=== PATIENT | female | born 1990 | race Caucasian/White ===

== ENCOUNTER 2017-04-14 11:34 | Inpatient (IN) | payer BC ==
[~2017-04-14] VITALS: Ht 167.6 cm; Wt 86.0 kg
[~2017-04-14 11:34] MED LIST: IBUP600T44 PO; PRENTAB26 PO
[2017-04-14 12:45] VITALS: BP 130/76; PULSE 77; TEMP 37.5; O2SAT 98
[2017-04-14] MEDS ORDERED: LACTATED RINGER'S 1000ML 1,000 ML IV SCH (14:18)
[2017-04-14] MEDS ORDERED: MEASLES, MUMPS & RUBELLA VIRUS VIAL SQ. ONE (14:30)
[2017-04-14] MEDS ORDERED: DIPHTHERIA/TETANUS/PERTUSSIS 0.5 ML SYR/VIAL IM. ONE (14:30)
[2017-04-14] MEDS ORDERED: LANOLIN OINT EXT PRN ×2 (14:30)
[2017-04-14] MEDS ORDERED: SUPERCREAM 0.870 % 15GM JAR EXT PRN (14:30)
[2017-04-14] MEDS ORDERED: OXYTOCIN 30 UNITS/500ML NSS IV PRN (14:30)
[2017-04-14] MEDS ORDERED: HYDROCORTISONE ACETATE 25 MG SUPP PR PRN (14:30)
[2017-04-14] MEDS ORDERED: BENZOCAINE 20% AER SPR 82.5 GM CAN EXT PRN (14:30)
--- NOTE | 2017-04-14 14:30 | Progress Note ---
Progress Note Date of Service Apr 14, 2017. Progress Note Admit Note 27 F P1001 who presented to [facility] ER in active labor at 35.4 weeks. Patient was found to be 8 cm and was to late to transfer to [facility] [place]. she had a normal spontaneous precipitous delivery by ER attending Dr. Parker with vigorous . Placenta was delivered intact and there were no tears. No active bleeding following Pitocin. Apgars unknown. When patient and baby male were stable she was transferred to [facility] for follow up care. Upon admission to [facility] she was examined and had a firm fundus and minimal lochia noted. She was alert and had been out of bed and voided OK. She tolerated diet. Baby in nursery and doing fine. Anticipate normal post- course and plan for discharge in AM if stable.
[2017-04-14 14:52] VITALS: Ht 167.6 cm; Wt 86.0 kg
[2017-04-14 15:30] VITALS: BP 119/76; PULSE 78; TEMP 36.9
[2017-04-14 19:45] VITALS: BP 120/70; PULSE 80; TEMP 37.5
[2017-04-14] MEDS: DOCUSATE SODIUM 100 MG CAP PO SCH (20:11)
[2017-04-14 23:30] VITALS: BP 119/72; PULSE 81; TEMP 37.1; O2SAT 98
[2017-04-15 04:40] VITALS: BP 103/64; PULSE 70; TEMP 36.8; O2SAT 98
[2017-04-15] MEDS ORDERED: MTR600X PO (07:13)
--- NOTE | 2017-04-15 07:14 | Discharge Instructions ---
Discharge Instructions Date of Service Apr 15, 2017. Admission Reason for Admission: Status Post Vag Delivery From Hosp Discharge Discharge Diagnosis / Problem: Precipitous vaginal Delivery Discharge Goals Goal(s): Routine recovery after delivery Medications Continue Dispensed Medications: supercream, dermaplast, tucks, lansinoh Activity Recommendations Activity Limitations: per Instructions/Follow-up section . Instructions / Follow-Up Instructions / Follow-Up ACTIVITY RECOMMENDATIONS: * Gradual return to full activity over the next 2-3 weeks. * No lifting - nothing heavier than baby over the next 2-3 weeks. * Do not engage in vigorous exercise, sexual activity or sports until cleared by your physician. * Do not drive or operate any motorized equipment until cleared by your physician. * You may shower/bathe daily. BREAST CARE: If you are not breast feeding: * Wear a supportive bra 24 hours a day for one to two weeks. * Avoid stimulating your breasts and nipples as much as possible during the first few weeks after delivery. * When taking a shower, have the warm water hit your back, not breasts. * When your breasts feel full, apply ice packs. Usually three to four times a day helps ease the discomfort. * Take a mild pain medication (Tylenol/Motrin) when you are uncomfortable. If breast feeding: * Use breast milk to lubricate nipples. Lansinoh cream may be used for sore nipples. You do not need to remove cream prior to breast feeding. If using a different brand of cream, check the label for directions regarding removal of cream prior to nursing. * Wear a supportive bra. * If having problems with breasts or breast feeding, call a exchange underwriting consultant or your health care provider. EPISIOTOMY CARE: After delivery, if you have an episiotomy (stitches), the following steps will ease discomfort and aid healing. * For the first 24 hours after delivery, place ice packs next to your episiotomy to help reduce swelling. * After the first 24 hour-period, sitz baths, either portable or in the tub, are suggested. A shower with a shower arm sprayed over the episiotomy may be comforting. * Khadijah care should be done after each voiding and bowel movement. Squirt warm water from a plastic bottle over the perineum (region of the body between the anus and urinary opening) and pat dry. * Use Dermoplast to ease discomfort. Shake container. [place] directly over the episiotomy. * Place a Tucks on a clean sanitary pad next to your episiotomy. OVER THE COUNTER MEDICATION: * For discomfort or pain, you may use Acetaminophen (Tylenol), Ibuprofen (Advil ), or Naproxen (Aleve) following the package directions. * For constipation you may use Colace following the package directions. SPECIAL CARE INSTRUCTIONS: When you are discharged from the hospital, it is important for you to follow the instructions listed below: * During the first week at home, you should be able to care for yourself and your baby. In addition, the usual light household activities are encouraged. * Limit your activities to the way you feel. Do not try to clean the house or move furniture. Be sensible. * If you actively engage in sports and have done so up until the time of your delivery, you may resume these activities as soon as you feel able. This may take up to one month or even longer. Use good judgment. * Continue to take your vitamins for at least six weeks after the of your baby. * Your diet need not be limited unless you were on a special diet before your delivery. Breast-feeding mothers need around 2500 calories per day and at least 64-80 ounces of fluid per day (8 to 10 glasses). * You should eat foods from the four major food groups. Crash diets or fad diets are to be avoided. Eating lean meats, fresh fruits and vegetables, low-fat dairy products, high fiber foods and a regular exercise program, will help you get back to your pre- weight without putting your health at risk. * Constipation is sometimes a problem after delivery. Take a mild laxative as needed. If breast feeding, Milk of Magnesia is acceptable to use. You may use a suppository or Fleets enema if no episiotomy. * A daily shower or tub bath is suggested. Be sure to thoroughly and gently dry the perineum. * A bloody vaginal discharge will usually continue until around four weeks post . A small amount of bleeding may continue for as long as six weeks. Vaginal discharge changes from the bright red bleeding after delivery to pink then brownish and finally yellowish-pink before becoming white and disappearing. * Bleeding may increase with activity. Your first period may come in 4-8 weeks. If you are breast feeding, your period may be delayed even longer. * [place] (sex) can begin whenever both you and your partner feel comfortable and do not have any form of genital infection. It is recommended that you wait until after your return appointment and discuss with your physician. If you have questions, please talk to your health care practitioner. A condom should be used to prevent infection and . * Foreplay, gentle intercourse and lubrication is very important the first several times to prevent pain. A water-based lubricant such as K-Y jelly or Astroglide may be used. * Tampons may be used six weeks after delivery. * Douching should be avoided for 6 weeks after delivery. * If you have RH negative blood and your baby is RH positive, you will receive RHOGAM by injection prior to discharge. The nurse will give you a card to keep with you that has the date and place that you received RHOGAM after delivery. * During your care, you had a Rubella screen done to check for the presence of rubella antibodies in your blood. If your test was negative, you will receive a Rubella vaccine prior to discharge. This vaccine may cause a fever, soreness at the injection site and flu-like symptoms. If these symptoms persist, notify your health care practitioner. is not advised for three months after a Rubella vaccine. There is a higher chance of having a baby with defects if conceived within three months of getting the vaccine. * If you were discharged 24 hours from delivery or before 48 hours: Visiting nurses will come to your home 48 hours after discharge to assess you and your baby. The visiting nurse will meet with you while you are in the hospital to arrange a time and get directions to your home. * Verbalizes understanding of car seat law as reviewed with patient nursing. * Car Seat hand-out given and reviewed with patient by nursing. * Shaken baby information reviewed with patient by nursing. Call you doctor if: * Heavy bleeding (saturating several pads an hour) or passing clots the size of your fist. * A fever >101 degrees F (38.3 degrees C) on two occasions four hours apart and/or chills. * Unusual pain in the pelvic or vaginal areas. * "Baby Blues" lasting longer than two weeks. If you have any questions or concerns, call your health care practitioner at . FOLLOW-UP VISIT: * Please call the office at to schedule a 6 week examination. It is important you keep this appointment. * It is important for you to make arrangements for either yearly or twice yearly check-ups thereafter. Current Hospital Diet Patient's current hospital diet: Regular OB Diet Discharge Diet Recommended Diet: Regular OB Diet Pending Studies Studies pending at discharge: no Medical Emergencies . Who to Call and When: Medical Emergencies: If at any time you feel your situation is an emergency, please call 911 immediately. . Non-Emergent Contact Non-Emergency issues call your: Primary Care Provider, Scientific Advisor . . "Provider Documentation" section prepared by Elbert Stout. . VTE Core Measure Inpt VTE Proph given/why not?: Treatment not indicated
--- NOTE | 2017-04-15 07:17 | OB/GYN Progress Note ---
[facility] Progress Note Date of Service Apr 15, 2017. Subjective conversation w/ patient, physical exam Ambulation: ambulating normally Voiding: no voiding problems Passing Gas: Yes Diet Tolerance: Regular Diet Lochia: Small Feeding Type: Breast Feeding Pain: 08/27 Notes: Doing well, no concerns. Pain well controlled. Lochia decreasing. Tolerating regular diet. Ambulating without difficulty. Would like to go home today. Objective Vital Signs Date Time Temp Pulse Resp B/P (MAP) Pulse Ox O2 Delivery O2 Flow Rate FiO2 04/15/17 04:40 36.8 70 18 103/64 (77) 98 Room Air 04/14/17 23:30 37.1 81 18 119/72 (88) 98 Room Air 04/14/17 23:30 98 Room Air 04/14/17 19:45 Room Air 04/14/17 19:45 37.5 80 18 120/70 (87) Room Air 04/14/17 15:30 Room Air 04/14/17 15:30 36.9 78 18 119/76 (90) Room Air 04/14/17 12:45 37.5 77 18 130/76 (94) Room Air 04/14/17 12:45 98 Room Air Physical Exam General Appearance: WELL-APPEARING Respiratory/Chest: chest non-tender, lungs clear Cardiovascular: regular rate, rhythm Abdomen: normal bowel sounds, soft Fundus: Firm Extremities: normal range of motion, non-tender, no calf tenderness Laboratory Results Last 24 Hours Test 04/15/17 06:17 Hemoglobin 10.4 g/dL Hematocrit 31.0 % Assessment and Plan Post- Day Number: 1 Continue Routine Care: -D/C home today -F/U in 6 weeks.
[2017-04-15 07:25] VITALS: BP 102/64; PULSE 63; TEMP 36.8
[2017-04-15] MEDS: FERROUS SULFATE 325 MG TAB PO SCH (07:49)
[2017-04-15] MEDS: PRENATAL VITAMIN TAB PO SCH (07:49)
[2017-04-15] MEDS: DOCUSATE SODIUM 100 MG CAP PO SCH ×2 (07:49→19:25)
[2017-04-15 16:10] VITALS: BP 112/68; PULSE 65; TEMP 37.2
[2017-04-15 19:15] VITALS: TEMP 37.4
[2017-04-15] MEDS: ACETAMINOPHEN 325 MG TAB PO PRN (19:26)
[2017-04-15] MEDS ORDERED: BISACODYL 5 MG TABEC PO SCH (20:00)
[2017-04-15 23:45] VITALS: BP 136/80; PULSE 96; TEMP 39.2
[2017-04-15] MEDS: IBUPROFEN 600 MG TAB PO PRN (23:59)
[2017-04-16] VITALS (10 sets, daily range): BP systolic 107–131; BP diastolic 69–79; PULSE 83–107; TEMP 36.7–39.5; O2SAT 96–98
[2017-04-16] MEDS: IBUPROFEN 600 MG TAB PO PRN ×3 (06:26→16:24)
[2017-04-16] MEDS ORDERED: BISACODYL 10 MG SUPP PR PRN (07:00)
[2017-04-16] MEDS: DOCUSATE SODIUM 100 MG CAP PO SCH ×2 (08:23→19:39)
[2017-04-16] MEDS: FERROUS SULFATE 325 MG TAB PO SCH (08:23)
[2017-04-16] MEDS: PRENATAL VITAMIN TAB PO SCH (08:23)
[2017-04-16] MEDS ORDERED: CEFAZOLIN IV 2,000 MG in DEXTROSE 5% 50ML 50 ML IV SCH (12:30)
--- NOTE | 2017-04-16 12:44 | Progress Note ---
Progress Note Date of Service Apr 16, 2017. Progress Note S; s/p delivery at [facility] in on 04/14/17 Pt has had 2 episodes of fever in 48hrs. has chills, no nausea,vomiting. no SOB O; fever x 2 in 48hrs Ht; S1S2 R/R/R lung; CTA bilat Abd; NT ND + BS Pel. moderate lochia Ext; No C/C/E A/p Post day #2 s/p delivery at ER [place] Plan labs CXR UA, C&S and blood clx start ancef antibx
[2017-04-16 13:19] LABS: BASO % 0.1 %; BASO ABS # 0.01 K/uL (0-0.2); HEMATOCRIT 33.5 % (37-47); IG% 1.6 %; LYMPH % 5.9 %; LYMPH ABS # 0.43 K/uL (1.2-3.4); MEAN CELL VOLUME 85.2 fL (80-100); MEAN CORPUSCULAR HEMOGLOBIN 29.5 pg (25-34); MONO % 3.6 %; NEUT % 88.8 %; PLATELET COUNT 149 K/uL (130-400); RED BLOOD COUNT 3.93 M/uL (4.2-5.4); WHITE BLOOD COUNT 7.32 K/uL (4.8-10.8)
[2017-04-16 13:31] LABS: COMPLETE YES; MEAN CORPUSCULAR HGB CONC 34.6 g/dl (32-36)
[2017-04-16 13:40] LABS: BUN/CREATININE RATIO 7.8 (10-20); CALCIUM 8.7 mg/dl (8.5-10.1); CREATININE 0.67 mg/dl (0.60-1.20); POTASSIUM 3.5 mmol/L (3.5-5.1)
[2017-04-16 13:47] LABS: ALB/GLOB RATIO 0.6 (0.9-2)
[2017-04-16] MEDS: LACTATED RINGER'S 1000ML 1,000 ML IV SCH (14:13)
--- NOTE | 2017-04-16 15:03 | DIAGNOSTIC IMAGING REPORT ---
PELVIC ULTRASOUND CLINICAL HISTORY: Status post vaginal delivery 2 days ago. Evaluate for retained products of conception. COMPARISON STUDY: None. TECHNIQUE: Transabdominal and transvaginal sonography of the pelvis was performed. FINDINGS: The uterus is enlarged, as expected, measuring 18.7 x 6.7 x 14.5 cm. The endometrium measures 6 mm in thickness. There is hypoechoic material within the lower endometrial canal. There are no areas of increased vascularity within the endometrium. No endometrial mass is identified. The ovaries are sonographically normal. The right measures 2.5 x 1.2 x 1.4 cm and left measures 2.7 x 1.6 x 2.7 cm. IMPRESSION: 1. Small amount of hypoechoic material within the lower endometrial canal without hypervascularity. This may reflect minimal blood products. No convincing sonographic evidence for retained products of conception. Expected uterine enlargement. Normal endometrial thickness of 6 mm. 2. Unremarkable sonographic appearance of the ovaries. Electronically signed by: Alo Lovett M.D. 04/16/2017 3:01 PM Dictated Date/Time: 04/16/2017 2:56 PM
--- NOTE | 2017-04-16 15:11 | DIAGNOSTIC IMAGING REPORT ---
CHEST-PA,LAT AND OBLIQUE VIEWS (4 views) CLINICAL HISTORY: fever COMPARISON STUDY: No previous studies for comparison. FINDINGS: The cardiac and mediastinal contours are normal. Slight increased attenuation the lower lung zones is felt to be secondary to overlying breast tissue attenuation. There is no focal pulmonary consolidation. There is a trace right pleural effusion. IMPRESSION: Trace right pleural effusion. No evidence of focal pulmonary consolidation Electronically signed by: Nakul Austin M.D. 04/16/2017 3:09 PM Dictated Date/Time: 04/16/2017 3:08 PM
[2017-04-16] MEDS: ACETAMINOPHEN 325 MG TAB PO PRN (17:35)
[2017-04-16 17:44] LABS: URINE APPEARANCE CLOUDY (CLEAR); URINE BILIRUBIN NEG (NEG); URINE COLOR YELLOW; URINE EPITHELIAL CELL AUTO >30 /lpf (0-5); URINE NITRITE NEG (NEG); URINE SPECIFIC GRAVITY 1.017 (1.000-1.030); UROBILINOGEN NEG (NEG); ZZUR CULT IF INDIC CLEAN CATCH YES
[2017-04-16 17:46] LABS: MANUAL MICROSCOPIC REQUIRED? NO; REVIEW REQ? NO
--- NOTE | 2017-04-16 18:06 | Progress Note ---
Progress Note Date of Service Apr 16, 2017. Progress Note Pt has another recorded temp of 39.0 On Ancef No headache, SOB or malaise. feels occasional chills Labs reviewed; No elev WBC, chest xray and pelvic sono nml Plan will change ancef to AMP and add Gent
[2017-04-16] MEDS ORDERED: GENTAMICIN CONSULT ACTIVE PRN (19:00)
[2017-04-16] MEDS: AMPICILLIN IV 2,000 MG in SODIUM CHLOR 0.9% AD-VAN 100ML 100 ML IV SCH (19:28)
--- NOTE | 2017-04-16 19:37 | Pharmacy Progress Note ---
Pharmacy Abx Initial Consult Date of Service Apr 16, 2017. Pharmacy Dosing Scope Date of Consult: 04/16/17 Consultation requested by: Dr. Andres Pharmacy is automatically consulted to initiate gentamicin IV dosing therapy, order appropriate labs and adjust drug dose/frequency. Subjective The patient is a 27 year old female admitted on Apr 14, 2017 at 12:52. Objective Height (Feet): 5 Height (Inches): 6.00 Weight (Kilograms): 86.000 Vital Signs (Past 12Hrs) Vital Signs Past 12 Hours Date Time Temp Pulse Resp B/P (MAP) Pulse Ox O2 Delivery O2 Flow Rate FiO2 04/16/17 17:10 39.4 04/16/17 16:15 39.5 98 28 117/69 (85) 96 Room Air 04/16/17 16:15 96 Room Air 04/16/17 11:55 37.7 04/16/17 08:30 36.7 107 18 107/69 (82) 98 Room Air 04/16/17 08:30 98 Room Air Lab Results (24Hrs) Laboratory Tests (24 Hours) Test 04/16/17 12:51 White Blood Count 7.32 K/uL (4.8-10.8) Red Blood Count 3.93 M/uL (4.2-5.4) L Hemoglobin 11.6 g/dL (12.0-16.0) L Hematocrit 33.5 % (37-47) L Mean Corpuscular Volume 85.2 fL (80-100) Mean Corpuscular Hemoglobin 29.5 pg (25-34) Mean Corpuscular Hemoglobin Concent 34.6 g/dl (32-36) Platelet Count 149 K/uL (130-400) Mean Platelet Volume 11.0 fL (7.4-10.4) H Neutrophils (%) (Auto) 88.8 % Lymphocytes (%) (Auto) 5.9 % Monocytes (%) (Auto) 3.6 % Eosinophils (%) (Auto) 0.0 % Basophils (%) (Auto) 0.1 % Neutrophils # (Auto) 6.50 K/uL (1.4-6.5) Lymphocytes # (Auto) 0.43 K/uL (1.2-3.4) L Monocytes # (Auto) 0.26 K/uL (0.11-0.59) Eosinophils # (Auto) 0.00 K/uL (0-0.5) Basophils # (Auto) 0.01 K/uL (0-0.2) Micro Results Date/Time Source Procedure Growth Status 04/16/17 13:06 Blood Blood Culture Pending Received 04/16/17 12:51 Blood Blood Culture Pending Received 04/16/17 00:00 Urine , Clean Catch Urine Culture Pending Received Assessment & Plan Assessment 27 year old female day #2, currently on Ancef. Now to be initiated on ampicillin and gentamicin for continued fevers. Blood and urine cultures have been obtained. Plan Gentamicin for treatment of possible endometritis. * Standard is to do conventional q8h dosing in these patients but more recent literature indicates that once daily dosing (at a dose of 5 mg/kg actual body weight) is just as clinically effective, less costly and has no more toxicity associated with it * Will initiate dose of 440 mg (~5 mg/kg actual body weight) IV q24h - currently ordered for 24 hours as per original order so will need to extend if necessary * No trough level is currently ordered so will need to order a trough prior to the 2nd dose if therapy is to be continued > 24 hours Pharmacy will continue to follow and will adjust dose/frequency as necessary. Thank you.
[2017-04-16] MEDS: GENTAMICIN INJ 440 MG in DEXTROSE 5% 100ML 100 ML IV SCH (20:27)
[2017-04-17] VITALS (8 sets, daily range): BP systolic 107–140; BP diastolic 73–86; PULSE 54–78; TEMP 36.6–39.5; O2SAT 97–100
[2017-04-17] MEDS: AMPICILLIN IV 2,000 MG in SODIUM CHLOR 0.9% AD-VAN 100ML 100 ML IV SCH ×4 (00:59→18:34)
[2017-04-17] MEDS: LACTATED RINGER'S 1000ML 1,000 ML IV SCH ×3 (02:09→18:34)
[2017-04-17] MEDS: IBUPROFEN 600 MG TAB PO PRN ×3 (04:44→13:04)
[2017-04-17 07:25] LABS: HEMATOCRIT 31.3 % (37-47); MEAN CELL VOLUME 85.3 fL (80-100); MEAN CORPUSCULAR HEMOGLOBIN 29.2 pg (25-34); MEAN PLATELET VOLUME 10.4 fL (7.4-10.4); PLATELET COUNT 139 K/uL (130-400); RED BLOOD COUNT 3.67 M/uL (4.2-5.4); WHITE BLOOD COUNT 9.28 K/uL (4.8-10.8)
[2017-04-17 07:39] LABS: MEAN CORPUSCULAR HGB CONC 34.2 g/dl (32-36)
[2017-04-17 07:49] LABS: BUN/CREATININE RATIO 9.8 (10-20); COMPLETE YES; CREATININE 0.63 mg/dl (0.60-1.20); EOSINOPHIL % 0.9 %; GIANT PLATELETS 1+; LYMPH ABS # 0.65 K/uL (1.2-3.4); MYELOCYTE % 1.8 %; POTASSIUM 3.4 mmol/L (3.5-5.1)
[2017-04-17 07:52] LABS: ALB/GLOB RATIO 0.6 (0.9-2)
--- NOTE | 2017-04-17 08:58 | OB/GYN Progress Note ---
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 Subjective conversation w/ patient, physical exam Ambulation: ambulating normally Voiding: no voiding problems Passing Gas: Yes Diet Tolerance: Regular Diet Lochia: Small Feeding Type: Breast Feeding Review of Systems Constitutional: + fever Objective Vital Signs Date Time Temp Pulse Resp B/P (MAP) Pulse Ox O2 Delivery O2 Flow Rate FiO2 04/17/17 05:50 38.7 04/17/17 04:30 39.5 78 20 123/77 (92) 98 Room Air 04/17/17 00:00 36.9 70 20 116/79 (91) 98 Room Air 04/17/17 00:00 98 Room Air 04/16/17 21:50 36.9 04/16/17 17:10 39.4 04/16/17 16:15 39.5 98 28 117/69 (85) 96 Room Air 04/16/17 16:15 96 Room Air 04/16/17 11:55 37.7 Physical Exam General Appearance: WELL-APPEARING, NO APPARENT DISTRESS Abdomen: non tender, soft Fundus: Firm Extremities: non-tender, normal inspection, no pedal edema Laboratory Results Last 24 Hours Test 04/16/17 12:51 04/17/17 07:11 White Blood Count 7.32 K/uL 9.28 K/uL Red Blood Count 3.93 M/uL 3.67 M/uL Hemoglobin 11.6 g/dL 10.7 g/dL Hematocrit 33.5 % 31.3 % Mean Corpuscular Volume 85.2 fL 85.3 fL Mean Corpuscular Hemoglobin 29.5 pg 29.2 pg Mean Corpuscular Hemoglobin Concent 34.6 g/dl 34.2 g/dl Platelet Count 149 K/uL 139 K/uL Mean Platelet Volume 11.0 fL 10.4 fL Neutrophils (%) (Auto) 88.8 % Lymphocytes (%) (Auto) 5.9 % Monocytes (%) (Auto) 3.6 % Eosinophils (%) (Auto) 0.0 % Basophils (%) (Auto) 0.1 % Neutrophils # (Auto) 6.50 K/uL Lymphocytes # (Auto) 0.43 K/uL Monocytes # (Auto) 0.26 K/uL Eosinophils # (Auto) 0.00 K/uL Basophils # (Auto) 0.01 K/uL RDW Standard Deviation 40.3 fL 40.2 fL RDW Coefficient of Variation 13.0 % 12.9 % Immature Granulocyte % (Auto) 1.6 % Immature Granulocyte # (Auto) 0.12 K/uL Sodium Level 137 mmol/L 139 mmol/L Potassium Level 3.5 mmol/L 3.4 mmol/L Chloride Level 105 mmol/L 109 mmol/L Carbon Dioxide Level 24 mmol/L 24 mmol/L Anion Gap 8.0 mmol/L 6.0 mmol/L Blood Urea Nitrogen 5 mg/dl 6 mg/dl Creatinine 0.67 mg/dl 0.63 mg/dl Est Creatinine Clear Calc Drug Dose 139.3 ml/min 148.1 ml/min Estimated GFR () 139.6 142.5 Estimated GFR (Non- 120.5 122.9 BUN/Creatinine Ratio 7.8 9.8 Random Glucose 96 mg/dl 88 mg/dl Calcium Level 8.7 mg/dl 8.0 mg/dl Total Bilirubin 0.7 mg/dl 0.6 mg/dl Aspartate Amino Transf (AST/SGOT) 19 U/L 41 U/L Alanine Aminotransferase (ALT/SGPT) 19 U/L 34 U/L Alkaline Phosphatase 143 U/L 119 U/L Total Protein 6.4 gm/dl 5.5 gm/dl Albumin 2.4 gm/dl 2.0 gm/dl Globulin 4.0 gm/dl 3.5 gm/dl Albumin/Globulin Ratio 0.6 0.6 Neutrophils % (Manual) 85.0 % Lymphocytes % (Manual) 7.0 % Monocytes % (Manual) 5.3 % Eosinophils % (Manual) 0.9 % Myelocytes % 1.8 % Neutrophils # (Manual) 7.89 K/uL Total Absolute Neutrophils 7.89 K/uL Lymphocytes # (Manual) 0.65 K/uL Total Absolute Lymphocytes 0.65 K/uL Monocytes # (Manual) 0.49 K/uL Eosinophils # (Manual) 0.08 K/uL Myelocytes # 0.17 K/uL Giant Platelets 1+ Assessment and Plan Post- Day Number: 3 Continue Routine Care: continue IV antibiotics blood and urine cultures pending
[2017-04-17] MEDS: FERROUS SULFATE 325 MG TAB PO SCH (09:03)
[2017-04-17] MEDS: PRENATAL VITAMIN TAB PO SCH (09:03)
[2017-04-17] MEDS: DOCUSATE SODIUM 100 MG CAP PO SCH ×2 (09:03→20:00)
[2017-04-17] MEDS ORDERED: GENTAMICIN TROUGH SCH (19:30)
[2017-04-17] MEDS: GENTAMICIN INJ 440 MG in DEXTROSE 5% 100ML 100 ML IV SCH (20:00)
[2017-04-18] VITALS (7 sets, daily range): BP systolic 111–143; BP diastolic 64–77; PULSE 50–73; TEMP 36.6–39.4; O2SAT 97
[2017-04-18] MEDS: AMPICILLIN IV 2,000 MG in SODIUM CHLOR 0.9% AD-VAN 100ML 100 ML IV SCH ×2 (01:36→06:35)
[2017-04-18] MEDS ORDERED: POTASSIUM CHLORIDE 10 MEQ TABCR PO STA (06:06)
--- NOTE | 2017-04-18 06:27 | DIAGNOSTIC IMAGING REPORT ---
ULTRASOUND VENOUS DOPPLER LWR EXT BILA CLINICAL HISTORY: fever STATUS POST VAGINAL DELIVERY. COMPARISON STUDY: No previous studies for comparison. FINDINGS: Real-time and color flow Doppler imaging were performed. Flow was seen within the femoral, popliteal and calf veins with no intraluminal thrombus demonstrated. The saphenous vein is patent. IMPRESSION: No evidence of deep venous thrombosis. No evidence of lower extremity DVT. Electronically signed by: Nakul Austin M.D. 04/18/2017 6:25 AM Dictated Date/Time: 04/18/2017 6:25 AM
[2017-04-18 06:29] LABS: PARTIAL THROMBOPLASTIN RATIO 1.2
[2017-04-18 06:39] LABS: HEMATOCRIT 32.3 % (37-47); MEAN CELL VOLUME 85.7 fL (80-100); MEAN CORPUSCULAR HEMOGLOBIN 28.4 pg (25-34); MEAN CORPUSCULAR HGB CONC 33.1 g/dl (32-36); MEAN PLATELET VOLUME 11.3 fL (7.4-10.4); PLATELET COUNT 155 K/uL (130-400); RED BLOOD COUNT 3.77 M/uL (4.2-5.4); WHITE BLOOD COUNT 9.32 K/uL (4.8-10.8)
[2017-04-18 06:42] LABS: BUN/CREATININE RATIO 11.4 (10-20); CALCIUM 8.5 mg/dl (8.5-10.1); CREATININE 0.58 mg/dl (0.60-1.20); MAGNESIUM 1.5 mg/dl (1.8-2.4); POTASSIUM 3.4 mmol/L (3.5-5.1)
[2017-04-18 06:53] LABS: ALB/GLOB RATIO 0.6 (0.9-2); THYROID STIMULATING HORMONE 0.904 uIu/ml (0.300-4.500)
[2017-04-18] MEDS ORDERED: IBUPROFEN 600 MG TAB PO SCH (07:30)
[2017-04-18 07:33] LABS: BASO % 0.1 %; BASO ABS # 0.01 K/uL (0-0.2); COMPLETE YES; DOHLE BODIES 1+; IG% 0.5 %; LYMPH % 13.7 %; LYMPH ABS # 1.28 K/uL (1.2-3.4); MONO % 9.9 %; NEUT % 74.8 %; TOXIC GRANULATION 1+
[2017-04-18] MEDS: MAGNESIUM SULFATE 1GM / D5W 1 GM in PREMIXED IN D5W 100 ML IV SCH ×2 (07:45→08:52)
--- NOTE | 2017-04-18 08:08 | INTERNAL MEDICINE CONSULTATION ---
DATE OF CONSULTATION: 04/18/2017 DATE OF CONSULTATION: 04/18/2017 PRIMARY CARE PHYSICIAN: Dr. Valadez. The patient seen at request by Dr. Lisa for evaluation of fever. HISTORY OF PRESENT ILLNESS: History obtained from patient and records. Medical history significant for past tobacco abuse, history of vanishing twin syndrome. Last 04/14/2017 patient went into labor at 35 weeks. PX brought to [facility]. Found to be 8 cm dilated. Precipitous delivery at the ER with male . Patient and transferred to [facility] for follow-up care last 04/14/2017. Patient has had recurrent fevers since April 15, 1145 PM. No chest pain, no shortness of breath, no cough. No perineal issues. No unusual breast swelling. Px denies abdominal pain, dysuria. Px constipated. Px denies unusual leg swelling. Antibiotics started for possible endometritis last 04/16/2017. Patient still with recurrent fevers. In the last hour patient noted achy headache symptoms from her forehead going to the occiput which she attributes to maybe just falling asleep on the wrong position. No nausea no vomiting no blurred vision. No recent tick bites. MEDICAL HISTORY: As above. SURGERIES: Childbirth. CURRENT MEDICATIONS: Include ampicillin, gentamicin, Lactated Ringer's, docusate sodium, ferrous sulfate, ibuprofen, lanolin, oxytocin p.r.n., vitamins, hemorrhoidal cream. ALLERGIES: No known drug allergies. FAMILY HISTORY: Diabetes. PERSONAL AND SOCIAL HISTORY: Past tobacco abuse. No chronic intake of alcoholic beverages. 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 REVIEW OF SYSTEMS: As per HPI, all other ROS negative. PHYSICAL EXAMINATION: VITAL SIGNS: Blood pressure was noted to be 107/69, pulse rate 90, RR 18, temperature 39.1, sats 98 on room air. GENERAL: Noted to be comfortable, no respiratory distress. Currently breast feeding her baby. HEAD, EYES, EARS, NOSE, AND THROAT: [place] palpebral conjunctivae. Dry mucosa. NECK: No JVD. Supple. CHEST: Clear to auscultation. HEART: Regular rate and rhythm. ABDOMEN: Soft. No tenderness. EXTREMITIES: min LE edema, no tenderness NE no gross focality. LABORATORY DATA: Hemoglobin was noted to be 10.7, hematocrit 30.3, white cell count 8, platelets noted to be 155. Sodium noted to be 136, potassium 3.4, chloride 106, CO2 24, BUN 7, creatinine 0.58, glucose 76. TSH 0.904. Lyme screen negative. UA urine culture preliminary no growth. Less than 100 colonies for urine CS Blood cultures no growth. LE Venous Doppler study initial read no DVT. Chest x-ray trace right pleural effusion. Pelvic ultrasound showed small amount hyperechoic material, cannot rule out hypervascularity, normal endometrial thickness of 6 mm. ASSESSMENT: 1. fever no obvious cause found for now No overt sepsis. 2. Ongoing antibiotic Rx for possible endometritis 3. hypokalemia, hypomagnesemia 4. constipation 5. anemia of 6. Past tobacco abuse RECOMMENDATIONS: Continue present management of presumptive endometritis as per OB (? Consider Unasyn in place of Ampicillin) Monitor patient for 48 hours. Replace electrolytes. Laxative regimen. Check procalcitonin. (An elevated procalcitonin supports a bacterial systemic cause for fever. Bacterial sepsis less likely with levels within normal limits.) DVT prophylaxis as per OB orders on admission. Thank you much for this consultation. Dr. Chen will follow the patient's progress. REEDD
[2017-04-18] MEDS: DOCUSATE SODIUM 100 MG CAP PO SCH (08:24)
[2017-04-18] MEDS: FERROUS SULFATE 325 MG TAB PO SCH (08:24)
[2017-04-18] MEDS: PRENATAL VITAMIN TAB PO SCH (08:25)
[2017-04-18 09:22] LABS: LYME DISEASE AB IGG NEG (NEG); LYME DISEASE AB IGM NEG (NEG)
--- NOTE | 2017-04-18 09:26 | Pharmacy Progress Note ---
Pharmacy Abx Dose Progress Nt Date of Service Apr 18, 2017. Pharmacy Dosing Scope The patient is currently receiving the following antimicrobial agents per Pharmacy consult: Gentamicin 440 mg IV every 24 hours Objective Height (Feet): 5 Height (Inches): 6.00 Weight (Kilograms): 86.000 Vital Signs (Past 12Hrs) Vital Signs Past 12 Hours Date Time Temp Pulse Resp B/P (MAP) Pulse Ox O2 Delivery O2 Flow Rate FiO2 04/18/17 08:20 Room Air 04/18/17 08:00 37.3 50 16 113/64 (80) Room Air 04/18/17 05:30 38.4 04/18/17 04:07 39.4 04/18/17 04:06 38.8 04/18/17 04:05 39.3 73 18 143/77 (99) 97 Room Air 04/17/17 23:35 98 Room Air 04/17/17 23:35 37.0 62 18 140/86 (104) 98 Room Air Lab Results (24Hrs) Laboratory Tests (24 Hours) Test 04/18/17 05:51 04/18/17 06:57 White Blood Count 9.32 K/uL (4.8-10.8) Red Blood Count 3.77 M/uL (4.2-5.4) L Hemoglobin 10.7 g/dL (12.0-16.0) L Hematocrit 32.3 % (37-47) L Mean Corpuscular Volume 85.7 fL (80-100) Mean Corpuscular Hemoglobin 28.4 pg (25-34) Mean Corpuscular Hemoglobin Concent 33.1 g/dl (32-36) Platelet Count 155 K/uL (130-400) Mean Platelet Volume 11.3 fL (7.4-10.4) H Neutrophils (%) (Auto) 74.8 % Lymphocytes (%) (Auto) 13.7 % Monocytes (%) (Auto) 9.9 % Eosinophils (%) (Auto) 1.0 % Basophils (%) (Auto) 0.1 % Neutrophils # (Auto) 6.97 K/uL (1.4-6.5) H Lymphocytes # (Auto) 1.28 K/uL (1.2-3.4) Monocytes # (Auto) 0.92 K/uL (0.11-0.59) H Eosinophils # (Auto) 0.09 K/uL (0-0.5) Basophils # (Auto) 0.01 K/uL (0-0.2) Total Creatine Kinase 56 U/L (26-192) Procalcitonin 0.19 ng/ml (0-0.5) Micro Results Date/Time Source Procedure Growth Status 04/16/17 13:06 Blood Blood Culture - Preliminary NO GROWTH TO DATE. Resulted 04/16/17 12:51 Blood Blood Culture - Preliminary NO GROWTH TO DATE. Resulted 04/16/17 00:00 Urine , Clean Catch Urine Culture - Preliminary NO GROWTH - LESS THAN 1,000 COLONIES/... Resulted Assessment & Plan Assessment 27 year old female receiving ampicillin and gentamicin for treatment of possible endometritis Day # 3 of antimicrobial therapy Plan Gentamicin * Patient receiving extended-interval dosing based on new evidence in endometritis * Trough was drawn ~45 minutes prior to next dose, trough level was within range of recommended level (<2) at <0.2 * Continue with current dose of 440 mg q24H * Dosage based on actual body weight. Pharmacy will continue to follow and will adjust dose/frequency as necessary. Thank you.
--- NOTE | 2017-04-18 10:12 | OB/GYN Progress Note ---
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 Patient is seen and examined. Reviewed her chart She feels well, no complaints She likes to be discharged today. Ambulating without dizziness Voiding without difficulty Tolerating regular diet with out N&V Bleeding is minimal No fever/ chills/ CP/ SOB/ N&V/ Leg pain No cough/ sore throat/ runny nose or cold symptoms Breast feeding without problems, no breast pain Date Time Temp Pulse Resp B/P (MAP) Pulse Ox O2 Delivery O2 Flow Rate FiO2 04/18/17 08:20 Room Air 04/18/17 08:00 37.3 50 16 113/64 (80) Room Air 04/18/17 05:30 38.4 04/18/17 04:07 39.4 04/18/17 04:06 38.8 04/18/17 04:05 39.3 73 18 143/77 (99) 97 Room Air 04/17/17 23:35 98 Room Air 04/17/17 23:35 37.0 62 18 140/86 (104) 98 Room Air 04/17/17 20:00 36.9 56 18 121/80 (94) 100 Room Air 04/17/17 15:30 36.6 54 18 129/80 (96) 98 Room Air 04/17/17 15:30 98 Room Air 04/17/17 12:25 36.8 54 16 107/73 (84) 97 Room Air PE: General: Alert, orientedx3, NAD CVS: S1S2 RRR Lungs; CTAB Breasts NT, no erythema, lactating Abd: soft, NT, fundus firm, NT, below Umbilicus Perineum intact, Lochia rubra minimal, no odor Ext; NT, no edema AP: 27 yo s/p precipitous delivery at [facility], ppd# 4 Fever since 04/16, on IV AB since 04/16 night, AMp+Gent Still spiking fever Work up negative, lyme titer pending Medicine no input Clinically doing well and desires discharge I recommended to continue with IV AB and be afebrile before d/c and consult ID She still desires to go home Continue routine care All questions were answered PS: I talked to Dr. GILLIAM from ID Discussed her in details He recommended to Amp and Gent and start Unasyn 3 gr q 6hours for 24 hours and if afebrile d/c home tomorrow on oral AB, Augmentin
[2017-04-18] MEDS ORDERED: AMPICILLIN/SULBACTAM SOD INJ 3,000 MG in SODIUM CHLORIDE 0.9% 100ML 100 ML IV SCH (12:00)
--- NOTE | 2017-04-18 12:28 | OB/GYN Progress Note ---
OPERATER Progress Note Date of Service: Apr 18, 2017. Late entry from 1105 Her mother is here Discussed with the patient and her mom about ID recommendations, IV unasyn for 24 hours and d/c home tomorrow with oral AB if afebrile They both stated they want to be discharged They wanted to talk to case management assistant to see insurance will pay for this admission if they sign out for AMA
[2017-04-18] MEDS ORDERED: AMOX875T PO (12:31)
--- NOTE | 2017-04-18 12:33 | Discharge Instructions ---
Discharge Instructions Date of Service Apr 18, 2017. 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 * No lifting - nothing heavier than baby over the next 2-3 weeks. * Do not engage in vigorous exercise, sexual activity or sports until cleared by your physician. * Do not drive or operate any motorized equipment until cleared by your physician. * You may shower/bathe daily. BREAST CARE: If you are not breast feeding: * Wear a supportive bra 24 hours a day for one to two weeks. * Avoid stimulating your breasts and nipples as much as possible during the first few weeks after delivery. * When taking a shower, have the warm water hit your back, not breasts. * When your breasts feel full, apply ice packs. Usually three to four times a day helps ease the discomfort. * Take a mild pain medication (Tylenol/Motrin) when you are uncomfortable. If breast feeding: * Use breast milk to lubricate nipples. Lansinoh cream may be used for sore nipples. You do not need to remove cream prior to breast feeding. If using a different brand of cream, check the label for directions regarding removal of cream prior to nursing. * Wear a supportive bra. * If having problems with breasts or breast feeding, call a customer sales consultant or your health care provider. EPISIOTOMY CARE: After delivery, if you have an episiotomy (stitches), the following steps will ease discomfort and aid healing. * For the first 24 hours after delivery, place ice packs next to your episiotomy to help reduce swelling. * After the first 24 hour-period, sitz baths, either portable or in the tub, are suggested. A shower with a shower arm sprayed over the episiotomy may be comforting. * Khadijah care should be done after each voiding and bowel movement. Squirt warm water from a plastic bottle over the perineum (region of the body between the anus and urinary opening) and pat dry. * Use Dermoplast to ease discomfort. Shake container. [place] directly over the episiotomy. * Place a Tucks on a clean sanitary pad next to your episiotomy. OVER THE COUNTER MEDICATION: * For discomfort or pain, you may use Acetaminophen (Tylenol), Ibuprofen (Advil ), or Naproxen (Aleve) following the package directions. * For constipation you may use Colace following the package directions. SPECIAL CARE INSTRUCTIONS: When you are discharged from the hospital, it is important for you to follow the instructions listed below: * During the first week at home, you should be able to care for yourself and your baby. In addition, the usual light household activities are encouraged. * Limit your activities to the way you feel. Do not try to clean the house or move furniture. Be sensible. * If you actively engage in sports and have done so up until the time of your delivery, you may resume these activities as soon as you feel able. This may take up to one month or even longer. Use good judgment. * Continue to take your vitamins for at least six weeks after the of your baby. * Your diet need not be limited unless you were on a special diet before your delivery. Breast-feeding mothers need around 2500 calories per day and at least 64-80 ounces of fluid per day (8 to 10 glasses). * You should eat foods from the four major food groups. Crash diets or fad diets are to be avoided. Eating lean meats, fresh fruits and vegetables, low-fat dairy products, high fiber foods and a regular exercise program, will help you get back to your pre- weight without putting your health at risk. * Constipation is sometimes a problem after delivery. Take a mild laxative as needed. If breast feeding, Milk of Magnesia is acceptable to use. You may use a suppository or Fleets enema if no episiotomy. * A daily shower or tub bath is suggested. Be sure to thoroughly and gently dry the perineum. * A bloody vaginal discharge will usually continue until around four weeks post . A small amount of bleeding may continue for as long as six weeks. Vaginal discharge changes from the bright red bleeding after delivery to pink then brownish and finally yellowish-pink before becoming white and disappearing. * Bleeding may increase with activity. Your first period may come in 4-8 weeks. If you are breast feeding, your period may be delayed even longer. * [place] (sex) can begin whenever both you and your partner feel comfortable and do not have any form of genital infection. It is recommended that you wait until after your return appointment and discuss with your physician. If you have questions, please talk to your health care practitioner. A condom should be used to prevent infection and . * Foreplay, gentle intercourse and lubrication is very important the first several times to prevent pain. A water-based lubricant such as K-Y jelly or Astroglide may be used. * Tampons may be used six weeks after delivery. * Douching should be avoided for 6 weeks after delivery. * If you have RH negative blood and your baby is RH positive, you will receive RHOGAM by injection prior to discharge. The nurse will give you a card to keep with you that has the date and place that you received RHOGAM after delivery. * During your care, you had a Rubella screen done to check for the presence of rubella antibodies in your blood. If your test was negative, you will receive a Rubella vaccine prior to discharge. This vaccine may cause a fever, soreness at the injection site and flu-like symptoms. If these symptoms persist, notify your health care practitioner. is not advised for three months after a Rubella vaccine. There is a higher chance of having a baby with defects if conceived within three months of getting the vaccine. * If you were discharged 24 hours from delivery or before 48 hours: Visiting nurses will come to your home 48 hours after discharge to assess you and your baby. The visiting nurse will meet with you while you are in the hospital to arrange a time and get directions to your home. * Verbalizes understanding of car seat law as reviewed with patient nursing. * Car Seat hand-out given and reviewed with patient by nursing. * Shaken baby information reviewed with patient by nursing. Call you doctor if: * Heavy bleeding (saturating several pads an hour) or passing clots the size of your fist. * A fever >101 degrees F (38.3 degrees C) on two occasions four hours apart and/or chills. * Unusual pain in the pelvic or vaginal areas. * "Baby Blues" lasting longer than two weeks. If you have any questions or concerns, call your health care practitioner at . FOLLOW-UP VISIT: * Please call the office at to schedule a 6 week examination. It is important you keep this appointment. * It is important for you to make arrangements for either yearly or twice yearly check-ups thereafter. . Current Hospital Diet Patient's current hospital diet: Regular OB Diet Discharge Diet Recommended Diet: Regular Diet Pending Studies Studies pending at discharge: no Medical Emergencies . Who to Call and When: Medical Emergencies: If at any time you feel your situation is an emergency, please call 911 immediately. . Non-Emergent Contact Non-Emergency issues call your: Surgeon Call Non-Emergent contact if: temperature is above 101, your pain is not controlled, your pain is worsening . . "Provider Documentation" section prepared by Graham Madrigal. . VTE Core Measure Inpt VTE Proph given/why not?: Treatment not indicated
--- NOTE | 2017-04-18 13:02 | OB/GYN Progress Note ---
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 Patient decided to be discharged home She received 1st dose ofIV Unasyn, last temp is 36.5 She understands the risks of fever/ endometritis whihc may cause bacteremia, sepsis She signed AMA form to be discharged All questions were answered Rx for Augmentin bid and Ibuprofen Encouraged to call us with fever/ chils/ VB/ Pain/ N&V or any problems or concerns f/u in office in 3-4 days
--- NOTE | 2017-04-30 15:43 | DISCHARGE SUMMARY ---
DETAILS OF ADMISSION: The patient is a 27-year-old who was status post precipitous delivery in the ER of [facility]. She was found to be 8 cm dilated and she was delivered in the ER precipitously. Then baby and mom were transported to [facility] for and care. Upon admission to [facility] she was found to have firm fundus/ uterus with minimal lochia rubra by Dr. Lisa. She had no lacerations. She was admitted for routine care. On day 1, the patient was doing well. Vital signs stable, afebrile. Her H&H was 06/17. The plan was to discharge her in the afternoon. Soon after that patient had a temperature of 39.2 Celsius and she was evaluated and she was started on IV antibiotics, which was Ancef. Blood culture was obtained. Urine culture and chest x-ray were ordered. Her Doppler ultrasound of the lower extremities were negative. Chest x-ray were negative. A pelvic ultrasound was unremarkable. She then had another episode of temperature 6 hours after that and was 39.1 and then she was switched to different antibiotics, ampicillin and gentamicin. She was clinically doing well, but she repeated to have a temperature over 39 C. Her white count was normal. H&H was stable. Her urine culture was negative. The blood culture came back negative after 2 days. She desired to be discharged. On 04/18/2017 when I came to see her she had another temperature of 39.3 in the morning, repeat was 38.8 and 39.4 again. I talked to the infectious disease specialist who recommended IV Unasyn for 24 hours and if she is afebrile she can be discharged home the next day with oral antibiotic. The patient and her adamantly wanted to go home. She was missing her older child at home. We discussed the risks of endometritis, sepsis, disseminated infection, even . She understood, but she wanted to go home. She signed AMA papers ( against medical advice) and she left the hospital against medical advice. See dictated note and discharge summaries for details. The patient was given prescription for oral antibiotic/ Augmentin 2 times a day for 2 weeks and to follow up in the office in 3 days. All questions were answered. SAROJ
== END 2017-04-18 13:25 | disposition left against medical advice (07) | DRG 776 ==
LOC: MERGE 12:52 → C.OBG 12:52
PROVIDERS: ADMIT Obstetrics & Gynecology; ATTEND Obstetrics & Gynecology
DX: Z39.0 Encounter for care and examination of mother immediately after delivery (principal); O86.12 Endometritis following delivery; N71.9 Inflammatory disease of uterus, unspecified; O99.285 Endocrine, nutritional and metabolic diseases complicating the puerperium; E87.6 Hypokalemia; E83.42 Hypomagnesemia; O90.81 Anemia of the puerperium; O99.63 Diseases of the digestive system complicating the puerperium; K59.00 Constipation, unspecified; Z87.891 Personal history of nicotine dependence